=== PATIENT | female | born 1995 | race Caucasian/White ===

== ENCOUNTER 2024-02-28 19:27 | Emergency (ER) | payer MEDICAID ==
[~2024-02-28] VITALS: Ht 160 cm; Wt 57.0 kg
[2024-02-28 19:28] VITALS: O2SAT 99
[2024-02-28 22:26] VITALS: BP 103/63; PULSE 73; RESP 16; TEMP 97.9
== END 2024-02-28 22:28 | disposition home or self-care (01) ==
LOC: ER 19:27
DX: S61.213A Laceration without foreign body of left middle finger without damage to nail, initial encounter (principal); W26.9XXA Contact with unspecified sharp object(s), initial encounter; Y93.89 Activity, other specified; Y92.89 Other specified places as the place of occurrence of the external cause; Y99.8 Other external cause status
CPT/HCPCS: 12001; 99282